=== PATIENT | male | born 1995 | race Caucasian/White ===

== ENCOUNTER 2018-12-16 21:46 | Emergency (ER) | payer OTHER ==
--- NOTE | 2018-12-16 21:58 | ER Report ---
History and Physical Time Seen By MD: 21:58 Hx. of Stated Complaint: cut on palm of left hand from a new pocket knife HPI/ROS CHIEF COMPLAINT: hand laceration HISTORY OF PRESENT ILLNESS: This is a 23 year old male. He had a new knife and was using as a screwdriver. Slipped, cutting the left palm in the thenar area. Normal senation and motor function. Bleeding controlled. Will need a tetanus. Allergies: Coded Allergies: No Known Drug Allergies (Unverified , 12/16/18) Home Meds No Active Prescriptions or Reported Meds Reviewed Nurses Notes: Yes Hx Substance Use Disorder: No Hx Alcohol Use: No Constitutional Vital Sign - Last 24 Hours 12/16/18 12/16/18 12/16/18 12/16/18 21:46 21:49 21:49 22:00 Temp 99.0 Pulse ??? 79 Resp 12 B/P (MAP) 143/98 143/98 (113) 139/93 (108) Pulse Ox 93 O2 Delivery Room Air 12/16/18 12/16/18 12/16/18 12/16/18 22:01 22:16 22:30 22:31 Pulse 76 83 68 B/P (MAP) 130/87 (101) Pulse Ox 93 94 92 12/16/18 12/16/18 12/16/18 12/16/18 22:46 23:00 23:01 23:16 Pulse 64 73 ??? B/P (MAP) 127/81 (96) Pulse Ox 91 90 Physical Exam General: alert, no distress. Skin: 4cm laceration left hand, thenar area of palm. Musculoskeletal: Normal motor function. Normal strength, active and resisted. Neuro: Normal sensation. Cardiovascular: Normal peripheral perfusion. Medical Decision Making ED Course/Re-evaluation ED Course Procedure: Laceration Repair Verbal consent from patient after discussing repair options, risks and benefits. Wound cleaned extensively with Hibiclens and saline. Anesthesia: Local 1% lidocaine without epinephrine and 0.5% bupivacaine without epinephrine. Location: Left palm, thenar area. Length: 4 cm. Character: linear. There were no deep structures involved. No tendon injury was identified. Wound repair: 7 interrupted 4-0 prolene sutures. The wound repair was simple and performed by our medical student under supervision. Wound care instructions discussed. Sutures need to be removed in 7 days. Tetanus booster given. Decision to Disposition Date: Dec 16, 2018 Decision to Disposition Time: 23:00 Depart Departure Latest Vital Signs Vital Signs Date Time Temp Pulse Resp B/P (MAP) Pulse Ox O2 Delivery O2 Flow Rate FiO2 12/16/18 23:16 ??? 12/16/18 23:01 90 12/16/18 23:00 127/81 (96) 12/16/18 21:49 99.0 12 Room Air Impression: Primary Impression: Laceration of hand, left Condition: Improved Disposition: HOME OR SELF-CARE New Scripts No Active Prescriptions or Reported Meds Patient Instructions: Hand Laceration Additional Instructions: Wound Care: Wash the wound once a day with soap and water. Dry the wound and apply a small amount of antibiotic ointment with a clean dressing. If the dressing becomes wet or dirty, repeat cleaning and dressing as above. No soaking the wound; no swimming. Stitches need to be removed in 5-7 days. Pain Control: Use Tylenol or ibuprofen for pain. Using and ice pack can help reduce swelling. Problem Qualifiers Primary Impression: Laceration of hand, left Encounter type: initial encounter Foreign body presence: without foreign body Qualified Codes: S61.412A - Laceration without foreign body of left hand, initial encounter KINGSTON ROSARIO MD Dec 16, 2018 21:58
[2018-12-16 23:00] VITALS: BP 127/81
[2018-12-16] MEDS ORDERED: DIPHTH/TETANUS/ACEL. PERTUSSIS IM ONLY ONE (23:05)
== END 2018-12-16 23:04 | disposition home or self-care (01) ==
LOC: ER 21:59
DX: S61.412A Laceration without foreign body of left hand, initial encounter (principal); W26.0XXA Contact with knife, initial encounter
CPT/HCPCS: 90471; 90715; 99283